=== PATIENT | male | born 1950 ===

== ENCOUNTER 2020-09-30 13:14 | Emergency (ER) | payer MEDICARE ==
--- NOTE | 2020-09-30 14:18 | EDM.PDOC ---
ED HPI GENERAL MEDICAL PROBLEM - General Chief Complaint: ENT Problem Stated Complaint: SOMETHING IN EYE Time Seen by Provider: 09/30/20 13:40 Source of Information: Reports: Patient - History of Present Illness INITIAL COMMENTS - FREE TEXT/NARRATIVE: patient was using an air hose on his lawnmower and felt a FB to the eye. He flushed the eye at home for 30 minutes but still felt the FB and some burning. Upon arrival Marisol SHARPE noted that the patient's right pupil was larger than the left. Patient denies any recent head injury or changes in vision. He is unsure if this is his baseline. Quality: Reports: Burning Severity: Mild Other Treatments MOUNTER CLARINETS: rinsing right eye with water at the eye wash station - Related Data Home Meds: Home Meds Ofloxacin [Ocuflox 0.3% Ophth Soln] 2 drop EYERT QID 5 Days #1 bottle 09/30/20 [Rx] Past Medical History HEENT History: Reports: None Cardiovascular History: Reports: None Respiratory History: Reports: None Endocrine/Metabolic History: Reports: None Oncologic (Cancer) History: Reports: None - Past Surgical History Other Musculoskeletal Surgeries/Procedures:: back pain in the past. neck pain worsening ED ROS GENERAL - Review of Systems Review Of Systems: See Below Constitutional: Reports: No Symptoms HEENT: Reports: Eye Pain Cardiovascular: Reports: No Symptoms Endocrine: Reports: No Symptoms GI/Abdominal: Reports: No Symptoms : Reports: No Symptoms Musculoskeletal: Reports: No Symptoms Skin: Reports: No Symptoms Neurological: Reports: No Symptoms Psychiatric: Reports: No Symptoms ED EXAM GENERAL W FULL EYE - Physical Exam Exam: See Below Text/Narrative:: Prior to exam, 2 drops of tetracaine administered to right eye, patient reports good relief. Exam performed with flouriscene and gonzalez lamp, very small corneal abrasion noted at 2oclock. On exam I saw a small blade of grass, when I opened the eye again to retrieve it, it could not be found. Additional irrigation performed without success. 1430 call to [facility] for consult. , we discussed the case and DC the patient home with foreign body as it should work itself out. I will start the patient on ofloxacin 0.3% eye drops 2 drops 4 times a day for 5 days. Patient was instructed to return to ED for any increased pain, visual changes, or other concerning symptoms. Exam Limited By: No Limitations General Appearance: Alert, No Apparent Distress Eye Exam: Right Eye: Abnormal Pupil (right eye is dialated, round and reactive 4.5), Corneal Abrasion, Left Eye: Normal Inspection, PERRL (left 3.0) With Correction: No Eyelids: Right: Foreign Body (on exam small corneal abrasion noted at 2oclock, small blade of grass noted but unable to locate on reassessment), Lid Everted for Exam, Bilateral: Normal Appearance Conjunctiva & Sclera: Left: Normal Appearance Cornea Exam: Right: Corneal Abrasion, Examined with Flourescein, Left: Normal Appearance Extraocular Movements: Bilateral: Intact Pupils: Unequal Pupillary Size: Right: 4 mm, Left: 3 mm Pupillary Reaction: Bilateral: Sluggish Throat/Mouth: Normal Voice Head: Atraumatic Neck: Normal Inspection, Full Range of Motion Respiratory/Chest: No Respiratory Distress GI/Abdominal: Non-Tender Back Exam: Full Range of Motion Extremities: Normal Range of Motion Neurological: Alert, Oriented, CN II-XII Intact, No Motor/Sensory Deficits Course - Vital Signs Last Recorded V/S: Last Vital Signs Temp 97.0 F 09/30/20 14:00 Pulse 63 09/30/20 14:00 Resp BP 160/96 H 09/30/20 14:00 Pulse Ox 99 09/30/20 14:00 Departure - Departure Time of Disposition: 14:55 Disposition: Home, Self-Care 01 Clinical Impression: Foreign body in eye Qualifiers: Encounter type: initial encounter Laterality: right Qualified Code(s): T15.91XA - Foreign body on external eye, part unspecified, right eye, initial encounter Corneal abrasion, right Qualifiers: Encounter type: initial encounter Qualified Code(s): S05.01XA - Injury of conjunctiva and corneal abrasion without foreign body, right eye, initial encounter - Discharge Information *PRESCRIPTION DRUG MONITORING PROGRAM REVIEWED*: Not Applicable *COPY OF PRESCRIPTION DRUG MONITORING REPORT IN PATIENT KB: Not Applicable Prescriptions: Ofloxacin [Ocuflox 0.3% Ophth Soln] 2 drop EYERT QID 5 Days #1 bottle Instructions: Eye Foreign Body, [id number], Corneal Abrasion, [id number] Referrals: PCP,None [Primary Care Provider] - Additional Instructions: Return to ED for any increased or new concerning symptoms, vision changes, or increased pain. Use the ofloxacin drops as directed. The blade of grass should work itself out of your right eye. Sepsis Event Note (ED) - Evaluation Sepsis Screening Result: No Definite Risk - Focused Exam Vital Signs: Vital Signs Temp Pulse BP Pulse Ox 09/30/20 14:00 97.0 F 63 160/96 H 99
[2020-09-30] MEDS ORDERED: Tetracaine 0.5% Ophth Soln 15 ML Bottle EYERT ONE (14:38)
[2020-09-30] MEDS ORDERED: Diphtheria,Pertussis(Acell),Tetanus Vaccine 0.5 ML SDV IM ONE (14:39)
== END 2020-09-30 15:00 | disposition home or self-care (01) ==
LOC: LB.ED 13:14
DX: T15.01XA Foreign body in cornea, right eye, initial encounter (principal); Z23 Encounter for immunization
CPT/HCPCS: 90471; 90715; 99283; A9270-GY

== ENCOUNTER 2021-04-13 22:59 | Emergency (ER) | payer MEDICARE ==
[2021-04-13] MEDS ORDERED: Ciprofloxacin in D5W 400 MG in Premix Bag 1 BAG IV ONE ×2 (23:57)
[2021-04-13] MEDS ORDERED: Sodium Chloride 0.9% 1,000 ML IV ONE (23:58)
[2021-04-13] MEDS ORDERED: Acetaminophen 325 MG Tab PO ONE (23:58)
--- NOTE | 2021-04-14 00:05 | EDM.PDOC ---
ED HPI GENERAL MEDICAL PROBLEM - General Chief Complaint: Fever Stated Complaint: chills, hematuria Time Seen by Provider: 04/13/21 23:49 Source of Information: Reports: Patient History Limitations: Reports: No Limitations - History of Present Illness INITIAL COMMENTS - FREE TEXT/NARRATIVE: patient presented to the ER with his due to chills and hematuria. patient has a known h/o recurrent UTIs, last UTI was 4 months ago ( responded to Cipro ). 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 Upon arrival home, he started to have the chills and reported a hematuria - so he decided to come to the ER for further evaluation. Patient denies any nausea or emesis. Reports mild supra pubic discomfort. no flank pain patient is otherwise healthy and doesn't take any medications Onset: Today Duration: Hour(s): (3) Location: Reports: Pelvis - Related Data Allergies Allergy/AdvReac Type Severity Reaction Status Date / Time No Known Allergies Allergy Verified 04/13/21 23:36 Home Meds: Home Meds Tamsulosin [Flomax] 0.4 mg PO DAILY 04/13/21 [History] Ciprofloxacin HCl [Cipro] 500 mg PO BID #10 tablet 04/14/21 [Rx] Past Medical History HEENT History: Reports: None Cardiovascular History: Reports: None Respiratory History: Reports: None Genitourinary History: Reports: BPH, Prostate Disorder, UTI, Recurrent Endocrine/Metabolic History: Reports: None Oncologic (Cancer) History: Reports: None - Past Surgical History Other Musculoskeletal Surgeries/Procedures:: back pain in the past. neck pain worsening Social & Family History - Caffeine Use Caffeine Use: Reports: Coffee - Alcohol Use Days Per Week of Alcohol Use: 4 Number of Drinks Per Day: 2 Total Drinks Per Week: 8 - Recreational Drug Use Recreational Drug Use: No ED ROS GENERAL - Review of Systems Review Of Systems: See Below Constitutional: Reports: No Symptoms HEENT: Reports: No Symptoms Respiratory: Reports: No Symptoms Cardiovascular: Reports: No Symptoms GI/Abdominal: Reports: No Symptoms : Reports: Dysuria, Hematuria Musculoskeletal: Reports: No Symptoms Skin: Reports: No Symptoms Neurological: Reports: No Symptoms ED EXAM, RENAL/ - Physical Exam Exam: See Below Exam Limited By: No Limitations General Appearance: Alert, WD/WN, No Apparent Distress Eye Exam: Bilateral Eye: EOMI Respiratory/Chest: No Respiratory Distress GI/Abdominal: Normal Bowel Sounds, Soft, Non-Tender Extremities: Normal Inspection, Normal Range of Motion Neurological: Alert, Oriented, No Motor/Sensory Deficits Psychiatric: Normal Affect Course - Vital Signs Last Recorded V/S: Last Vital Signs Temp 38.0 C 04/13/21 23:42 Pulse 96 04/13/21 23:42 Resp 28 H 04/13/21 23:42 BP 117/72 04/13/21 23:42 Pulse Ox 92 L 04/13/21 23:42 - Orders/Labs/Meds Orders: Active Orders 24 hr Category Date Time Status CULTURE URINE [RM] Stat Lab 04/13/21 23:11 Received Ciprofloxacin in D5W [Cipro in D5W 400 MG/200 ML] 400 Med 04/13/21 23:57 Ordered mg Premix Bag 1 bag IV ONETIME Sodium Chloride 0.9% [Normal Saline] 1,000 ml Med 04/13/21 23:58 Ordered IV .BOLUS Medication Orders Ciprofloxacin/Dextrose 400 mg/ (Premix) 200 mls @ 200 mls/hr IV ONETIME ONE Stop: 04/14/21 00:56 Last Admin: 04/14/21 00:06 Dose: 200 mls/hr Documented by: SUNIL Sodium Chloride (Normal Saline) 1,000 mls @ 999 mls/hr IV .BOLUS ONE Stop: 04/14/21 00:58 Last Admin: 04/14/21 00:00 Dose: 999 mls/hr Documented by: SUNIL Labs: Laboratory Tests 04/13/21 04/13/21 04/13/21 Range/Units 23:11 23:25 23:25 WBC 5.2 D (4.0-11.0) K/uL RBC 4.96 (4.50-6.50) M/uL Hgb 15.8 (13.0-18.0) g/dL Hct 47.6 (40.0-54.0) % MCV 96 (76-96) fL MCH 31.9 (27.0-32.0) pg MCHC 33.2 (31.0-35.0) g/dL RDW 14.9 (11.0-16.0) % Plt Count 202 (150-400) K/uL MPV 10.0 (6.0-10.0) fL Neut % (Auto) 84.7 H (45.0-70.0) % Lymph % (Auto) 13.5 L (20.0-40.0) % [place] % (Auto) 1.4 L (3.0-10.0) % Eos % (Auto) 0.2 L (1.0-5.0) % Baso % (Auto) 0.2 (0.0-0.5) % Neut # (Auto) 4.39 (2.00-7.50) K/uL Lymph # (Auto) 0.70 L (1.50-4.00) K/uL [place] # (Auto) 0.07 L (0.20-0.80) K/uL Eos # (Auto) 0.01 L (0.04-0.40) K/uL Baso # (Auto) 0.01 L (0.02-0.10) K/uL Sodium 140 (136-145) mmol/L Potassium 3.9 (3.5-5.1) mmol/L Chloride 103 (98-107) mmol/L Carbon Dioxide 21.0 D (21.0-32.0) mmol/L Anion Gap 19.9 H (5.0-15.0) mmol/L BUN 19 D (8-26) mg/dL Creatinine 1.12 (0.70-1.30) mg/dL Est Cr Clr Drug Dosing 68.91 mL/min Estimated GFR (MDRD) > 60 (>60) MLS/MIN BUN/Creatinine Ratio 17.0 (6-25) Glucose 90 (74-100) mg/dL Calcium 8.1 L (8.5-10.1) mg/dL Urine Color Red Urine Appearance Cloudy (CLEAR) Urine pH 5.0 (5.0-8.0) Ur Specific Delta 1.010 (1.003-1.030) Urine Protein 100 H (NEGATIVE) mg/dL Urine Glucose (UA) Negative (NEGATIVE) mg/dL Urine Ketones Negative (NEGATIVE) mg/dL Urine Occult Blood Large H (NEGATIVE) Urine Nitrite Negative (NEGATIVE) Urine Bilirubin Negative (NEGATIVE) Urine Urobilinogen 0.2 (0.2-1.0) E.U./dL Ur Leukocyte Esterase Moderate H (NEGATIVE) Urine RBC >100 H /HPF Urine WBC 50-75 H /HPF Urine WBC Clumps Moderate /HPF Ur Squamous Epith Cells Few /HPF Urine Bacteria Moderate H /HPF Meds: Medications Generic Name Dose Route Start Last Admin Trade Name Freq PRN Reason Stop Dose Admin Ciprofloxacin/Dextrose 400 mg/ 200 mls @ 200 mls/hr 04/13/21 23:57 04/14/21 00:06 Premix IV 04/14/21 00:56 200 mls/hr ONETIME ONE Administration Sodium Chloride 1,000 mls @ 999 mls/hr 04/13/21 23:58 04/14/21 00:00 Normal Saline IV 04/14/21 00:58 999 mls/hr .BOLUS ONE Administration Discontinued Medications Generic Name Dose Route Start Last Admin Trade Name Freq PRN Reason Stop Dose Admin Acetaminophen 650 mg 04/13/21 23:58 04/14/21 00:01 Acetaminophen 325 Mg Tab PO 04/13/21 23:59 650 mg NOW ONE Administration Acetaminophen Confirm 04/14/21 00:10 04/14/21 00:07 Acetaminophen 325 Mg Tab Administered 04/14/21 00:11 Not Given Dose 650 mg .ROUTE .STK-MED ONE Ciprofloxacin/Dextrose Confirm 04/14/21 00:06 04/14/21 00:07 Cipro In D5w 400 Mg/200 Ml Administered 04/14/21 00:07 Not Given Dose 200 mls @ as directed .ROUTE .STK-MED ONE - Re-Assessments/Exams Free Text/Narrative Re-Assessment/Exam: 04/14/21 00:04 labs were ordered - no leukocytosis in the blood, but mild elevation in neurophil count. Also, UA ++ RBC, WBC, bacteria and leukocytes esterase. IVF was given as a bolus and IV cipro 400mg 04/14/21 00:49 after fluids and tylenol - patient reports feeling much better and back to normal stage will be d/cd home on a prescription of PO abx Departure - Departure Time of Disposition: 00:55 Disposition: Home, Self-Care 01 Condition: Good Clinical Impression: Recurrent UTI - Discharge Information *PRESCRIPTION DRUG MONITORING PROGRAM REVIEWED*: Not Applicable *COPY OF PRESCRIPTION DRUG MONITORING REPORT IN PATIENT KB: Not Applicable Prescriptions: Ciprofloxacin HCl [Cipro] 500 mg PO BID #10 tablet Referrals: PCP,None [Primary Care Provider] - Forms: ED Department Discharge Sepsis Event Note (ED) - Evaluation Sepsis Screening Result: No Definite Risk - Focused Exam Vital Signs: Vital Signs Temp Pulse Resp BP Pulse Ox 04/13/21 23:42 38.0 C 96 28 H 117/72 92 L 04/13/21 23:22 37.9 C 98 24 H 127/83 98 - Problem List & Annotations (1) Recurrent UTI SNOMED Code(s): 974866200 Code(s): N39.0 - URINARY TRACT INFECTION, SITE NOT SPECIFIED Status: Acute Priority: Low Current Visit: Yes - Problem List Review Problem List Initiated/Reviewed/Updated: Yes - My Orders Last 24 Hours: My Active Orders 04/13/21 23:11 CULTURE URINE [RM] Stat 04/13/21 23:57 Ciprofloxacin in D5W [Cipro in D5W 400 MG/200 ML] 400 mg Premix Bag 1 bag IV ONETIME 04/13/21 23:58 Sodium Chloride 0.9% [Normal Saline] 1,000 ml IV .BOLUS - Assessment/Plan Last 24 Hours: My Active Orders 04/13/21 23:11 CULTURE URINE [RM] Stat 04/13/21 23:57 Ciprofloxacin in D5W [Cipro in D5W 400 MG/200 ML] 400 mg Premix Bag 1 bag IV ONETIME 04/13/21 23:58 Sodium Chloride 0.9% [Normal Saline] 1,000 ml IV .BOLUS Plan: - please take antibiotics as prescribed - increase fluids intake to at least 2-3 lit a day - return to the ER if symptoms recurred or any concerns - follow up with your PCP in early/mid next week
[2021-04-14] MEDS ORDERED: Ciprofloxacin in D5W 200 ML ONE (00:06)
[2021-04-14] MEDS ORDERED: Acetaminophen 325 MG Tab ONE (00:10)
== END 2021-04-14 01:20 | disposition home or self-care (01) ==
LOC: LB.ED 22:59
DX: N39.0 Urinary tract infection, site not specified (principal)
CPT/HCPCS: 36415; 80048; 81001; 85025; 87086; 87088; 87186; 96365; 99283; 99283-25; A9270-GY; J0744; J7030

== ENCOUNTER 2021-10-31 10:32 | Emergency (ER) | payer MEDICARE ==
--- NOTE | 2021-10-31 13:26 | EDM.PDOC ---
ED HPI GENERAL MEDICAL PROBLEM - General Chief Complaint: General Stated Complaint: EXTREME FATIGUE / EXCESSIVE THIRST Time Seen by Provider: 10/31/21 11:00 Source of Information: Reports: Patient History Limitations: Reports: No Limitations - History of Present Illness INITIAL COMMENTS - FREE TEXT/NARRATIVE: This patient presents to the emergency department along with his with a complaint of fatigue. He has had multiple visits to the clinic since October 03 for the same concern. He has had multiple lab tests drawn, was on antibiotics for presumed Lyme's which was found to be negative, and is not currently on any medications for this. He states his fatigue is sometimes overwhelming and he is unable to dress himself or move around without assistance. He is also noticed that he is quite thirsty and is consuming large amounts of water and urinating frequently. He does have an appointment scheduled with hematology service at [facility] in 1 week. He is also recently had a CT scan of chest abdomen and pelvis through the clinic. Bilateral Upper Leg Pain Score (Numeric/FACES): 2 - Related Data Allergies Allergy/AdvReac Type Severity Reaction Status Date / Time No Known Allergies Allergy Verified 10/31/21 11:16 Home Meds: Home Meds Acetaminophen [Tylenol Extra Strength] 1,000 mg PO BID 10/31/21 [History] Past Medical History HEENT History: Reports: None Cardiovascular History: Reports: None Respiratory History: Reports: None Genitourinary History: Reports: BPH, Prostate Disorder, UTI, Recurrent Endocrine/Metabolic History: Reports: None Oncologic (Cancer) History: Reports: None - Past Surgical History Other Musculoskeletal Surgeries/Procedures:: back pain in the past. neck pain worsening Social & Family History - Tobacco Use Tobacco Use Status *Q: Never Tobacco User - Caffeine Use Caffeine Use: Reports: Coffee - Recreational Drug Use Recreational Drug Use: No ED ROS GENERAL - Review of Systems Review Of Systems: See Below Constitutional: Reports: Chills, Malaise, Weakness, Fatigue, Decreased Appetite, Weight Loss. Denies: Fever, Night Sweats HEENT: Reports: No Symptoms Respiratory: Reports: No Symptoms Cardiovascular: Reports: No Symptoms GI/Abdominal: Reports: Anorexia, Decreased Appetite. Denies: Diarrhea, Nausea, Vomiting Musculoskeletal: Reports: No Symptoms Skin: Reports: No Symptoms Neurological: Reports: Difficulty Walking, Weakness. Denies: Dizziness, Headache, Syncope ED EXAM, GENERAL - Physical Exam Exam: See Below Exam Limited By: No Limitations General Appearance: Alert, No Apparent Distress Eye Exam: Bilateral Eye: PERRL Ears: Normal External Exam Nose: Normal Inspection Throat/Mouth: Normal Inspection, Normal Oropharynx Head: Atraumatic, Normocephalic Neck: Normal Inspection, Supple, Full Range of Motion Respiratory/Chest: No Respiratory Distress, Lungs Clear, Normal Breath Sounds, No Accessory Muscle Use Cardiovascular: Regular Rate, Rhythm Neurological: Alert, Oriented, Normal Cognition Psychiatric: Normal Affect Skin Exam: Warm, Dry, Intact, Pallor Course - Vital Signs Last Recorded V/S: Last Vital Signs Temp 36.5 C 10/31/21 11:40 Pulse 87 10/31/21 11:40 Resp 18 10/31/21 11:40 BP 123/81 10/31/21 11:40 Pulse Ox 97 10/31/21 11:40 - Orders/Labs/Meds Labs: Laboratory Tests 10/31/21 10/31/21 Range/Units 11:30 11:30 WBC 23.7 H* (4.0-11.0) K/uL RBC 3.82 L (4.50-6.50) M/uL Hgb 11.4 L (13.0-18.0) g/dL Hct 35.5 L (40.0-54.0) % MCV 93 (76-96) fL MCH 29.8 (27.0-32.0) pg MCHC 32.1 (31.0-35.0) g/dL RDW 13.8 (11.0-16.0) % Plt Count 907 H* D (150-400) K/uL MPV 9.7 (6.0-10.0) fL Neut % (Auto) 80.9 H (45.0-70.0) % Lymph % (Auto) 8.2 L (20.0-40.0) % [place] % (Auto) 9.9 (3.0-10.0) % Eos % (Auto) 0.5 L (1.0-5.0) % Baso % (Auto) 0.5 (0.0-0.5) % Neut # (Auto) 19.16 H (2.00-7.50) K/uL Lymph # (Auto) 1.95 (1.50-4.00) K/uL [place] # (Auto) 2.34 H (0.20-0.80) K/uL Eos # (Auto) 0.13 (0.04-0.40) K/uL Baso # (Auto) 0.13 H (0.02-0.10) K/uL Sodium 141 (136-145) mmol/L Potassium 4.6 (3.5-5.1) mmol/L Chloride 102 (98-107) mmol/L Carbon Dioxide 30.3 (21.0-32.0) mmol/L Anion Gap 13.3 (5.0-15.0) mmol/L BUN 20 (8-26) mg/dL Creatinine 1.19 (0.70-1.30) mg/dL Est Cr Clr Drug Dosing 61.37 mL/min Estimated GFR (MDRD) > 60 (>60) MLS/MIN BUN/Creatinine Ratio 16.8 (6-25) Glucose 116 H (74-100) mg/dL Calcium 9.1 (8.5-10.1) mg/dL - Re-Assessments/Exams Free Text/Narrative Re-Assessment/Exam: This patient presents to the emergency department for evaluation of fatigue. He has been seen multiple times through the clinic and most recently did have a peripheral smear which revealed a white count of 19,000 with elevated lymphocytes. He has been scheduled with hematology service at [facility] and has an appointment scheduled in 1 week. History and clinical findings are most suspicious for lymphoma. I did share this information with the patient and his . I did answer as many of his questions as I was able to based on the limited information we have here. White count and platelets were both more elevated today and patient continues to be quite fatigued. He was given some printed information on lymphoma and instructed to follow-up in 1 week as previously scheduled. The patient was stable at the time of discharge. 10/31/21 13:24 Departure - Departure Time of Disposition: 12:05 Disposition: Home, Self-Care 01 Condition: Fair Clinical Impression: Lymphocytosis - Discharge Information Referrals: Florentin Pichardo MD [Primary Care Provider] - Forms: ED Department Discharge Sepsis Event Note (ED) - Evaluation Sepsis Screening Result: No Definite Risk - Focused Exam Vital Signs: Vital Signs Temp Pulse Resp BP Pulse Ox 10/31/21 11:40 36.5 C 87 18 123/81 97
== END 2021-10-31 12:30 | disposition home or self-care (01) ==
LOC: LB.ED 10:32
DX: D72.820 Lymphocytosis (symptomatic) (principal)
CPT/HCPCS: 36415; 80048; 85025; 99283